=== PATIENT | male | born 1960 | race Two or more races ===

== ENCOUNTER 2018-12-29 18:21 | Emergency (ER) | payer MEDICAID, OTHER ==
[~2018-12-29] VITALS: Ht 182.9 cm; Wt 77.1 kg
[2018-12-29 20:03] VITALS: BP 170/100
[2018-12-30] MEDS ORDERED: MULTIPLE VITAMIN 10 ML, MAGNESIUM SULF SDV 50% 8 MEQ, THIAMINE INJ 100 MG in SODIUM CHL... IV SCH (12:00)
== END 2018-12-29 22:37 | disposition left against medical advice (07) ==
LOC: EDBD 18:21 → ER 18:21
DX: S09.8XXA Other specified injuries of head, initial encounter (principal); G92 Toxic encephalopathy; F10.129 Alcohol abuse with intoxication, unspecified; R42 Dizziness and giddiness; R51 Headache; F17.210 Nicotine dependence, cigarettes, uncomplicated; Y90.9 Presence of alcohol in blood, level not specified; W19.XXXA Unspecified fall, initial encounter; Y93.01 Activity, walking, marching and hiking; Y92.89 Other specified places as the place of occurrence of the external cause; Y99.8 Other external cause status
CPT/HCPCS: 70450

== ENCOUNTER 2019-01-10 22:07 | Emergency (ER) | payer MEDICAID ==
[~2019-01-10] VITALS: Ht 185.4 cm; Wt 90.7 kg
[2019-01-10 23:41] LABS: Basophils # (auto) 0 uL; Basophils % (auto) 0.4 % (0.0-2.0); Eosinophils # (auto) 0.1 uL; Eosinophils % (auto) 1.1 % (0.0-7.0); Hematocrit 40.7 % (41.0-53.0); Hemoglobin 14.1 g/dL (13.5-17.5); Lymphocytes # (auto) 1.4 uL; Lymphocytes % (auto) 23.8 % (10.0-50.0); Mean Corpuscular Hemoglobin 33.9 pg (28.0-32.0); Mean Corpuscular Hgb Conc. 34.7 g/dL (32.0-36.0); Mean Corpuscular Volume 97.9 fL (80.0-100.0); Monocytes # (auto) 0.7 uL; Neutrophils # (auto) 3.6 uL; Neutrophils % (auto) 62.7 % (37.0-80.0); Nucleated Red Blood Cells % 0.1 %; Platelet Count (auto) 89 10^3/uL (140-450); Red Blood Cells 4.16 10^6/uL (4.5-5.90); Red Cell Distribution Width 13.4 % (11.8-14.3); White Blood Cell 5.7 10^3/uL (4.4-10.8)
[2019-01-10 23:57] LABS: Albumin 3.5 g/dL (3.4-5.0); Calcium 8.8 mg/dL (8.5-10.1); Potassium 3.8 mmol/L (3.5-5.1)
[2019-01-11 00:01] LABS: Acetaminophen < 2.0 ug/mL (10-30); BUN/Creatinine Ratio 10.6
[2019-01-11 00:04] LABS: Bilirubin, Total 1.4 mg/dL (0.2-1.0); Total Protein 7.6 g/dL (6.4-8.2)
[2019-01-11 00:16] LABS: Salicylate < 1.7 mg/dL (2.8-20.0)
[2019-01-11 01:13] LABS: Urine Bacteria FEW /hpf (None Seen); Urine Blood Negative /uL (Negative); Urine Specific Gravity 1.005 (1.001-1.035); Urine WBC 1 /hpf (0 - 3)
[2019-01-11 01:25] LABS: Amphetamine Screen, Urine NEGATIVE (NEGATIVE); Barbiturate Scree,Urine NEGATIVE (NEGATIVE); Benzodiazephine Screen, Urine POSITIVE (NEGATIVE); Cannabinoid Screen, Urine NEGATIVE (NEGATIVE); Cocaine Screen, Urine NEGATIVE (NEGATIVE); Opiate Scree,Urine NEGATIVE (NEGATIVE); Phencyclidine Screen, Urine NEGATIVE (NEGATIVE)
[2019-01-11] MEDS ORDERED: MULTIPLE VITAMIN 10 ML, MAGNESIUM SULF SDV 50% 8 MEQ, THIAMINE INJ 100 MG in SODIUM CHL... IV ONE (02:45)
[2019-01-11] MEDS ORDERED: THIAMINE 100mg/ml INJ (200mg/2ml VIAL) ONE (02:52)
[2019-01-11] MEDS ORDERED: MAGNESIUM SULFATE 1GM/100ML 0 ML IV ONE (02:53)
[2019-01-11 03:26] VITALS: BP 129/80
== END 2019-01-11 04:11 | disposition home or self-care (01) ==
LOC: EDUNIT# 22:07 → EDBD 22:07 → ER 22:22
DX: S02.2XXA Fracture of nasal bones, initial encounter for closed fracture (principal); R41.82 Altered mental status, unspecified; G92 Toxic encephalopathy; F10.129 Alcohol abuse with intoxication, unspecified; F17.210 Nicotine dependence, cigarettes, uncomplicated; Z59.0 Homelessness; W19.XXXA Unspecified fall, initial encounter; Y93.89 Activity, other specified; Y92.89 Other specified places as the place of occurrence of the external cause; Y99.8 Other external cause status; Y90.8 Blood alcohol level of 240 mg/100 ml or more
CPT/HCPCS: 36415; 70450; 70486; 71045; 72125; 80053; 80307; 80320; 80329; 81001; 85025; 96365; 99284; J3411; J3475; J7030

== ENCOUNTER 2019-01-24 15:28 | Emergency (ER) | payer MEDICAID ==
[~2019-01-24] VITALS: Ht 170.2 cm; Wt 77.1 kg
[2019-01-24] MEDS ORDERED: SODIUM CHLORIDE 0.9% 1,000 ML IV ONE ×2 (15:41→17:00)
[2019-01-24 16:14] LABS: Basophils # (auto) 0 uL; Eosinophils # (auto) 0.1 uL; Eosinophils % (auto) 1.6 % (0.0-7.0); Lymphocytes % (auto) 22.3 % (10.0-50.0); Nucleated Red Blood Cells % 0.1 %
[2019-01-24 16:16] LABS: Basophils % (auto) 0.3 % (0.0-2.0); Hematocrit 40.8 % (41.0-53.0); Hemoglobin 14.3 g/dL (13.5-17.5); Lymphocytes # (auto) 1.3 uL; Mean Corpuscular Hemoglobin 34.7 pg (28.0-32.0); Mean Corpuscular Hgb Conc. 34.9 g/dL (32.0-36.0); Mean Corpuscular Volume 99.5 fL (80.0-100.0); Monocytes # (auto) 0.9 uL; Monocytes % (auto) 14.4 % (0.0-12.0); Neutrophils # (auto) 3.7 uL; Neutrophils % (auto) 61.4 % (37.0-80.0); Platelet Count (auto) 85 10^3/uL (140-450); Red Blood Cells 4.11 10^6/uL (4.5-5.90); Red Cell Distribution Width 16.2 % (11.8-14.3)
[2019-01-24 16:21] LABS: Albumin 3.4 g/dL (3.4-5.0); Calcium 7.8 mg/dL (8.5-10.1); Potassium 3.7 mmol/L (3.5-5.1)
[2019-01-24 16:26] LABS: Amphetamine Screen, Urine NEGATIVE (NEGATIVE); Barbiturate Scree,Urine NEGATIVE (NEGATIVE); Benzodiazephine Screen, Urine NEGATIVE (NEGATIVE); Cannabinoid Screen, Urine NEGATIVE (NEGATIVE); Cocaine Screen, Urine NEGATIVE (NEGATIVE); Opiate Scree,Urine NEGATIVE (NEGATIVE); Phencyclidine Screen, Urine NEGATIVE (NEGATIVE)
[2019-01-24 16:27] LABS: BUN/Creatinine Ratio 9.8; Bilirubin, Total 1.8 mg/dL (0.2-1.0); Total Protein 7.6 g/dL (6.4-8.2)
[2019-01-24 18:14] VITALS: BP 169/98
== END 2019-01-24 19:40 | disposition left against medical advice (07) ==
LOC: EDBD 15:28 → ER 15:35
DX: F10.129 Alcohol abuse with intoxication, unspecified (principal); E83.51 Hypocalcemia; F17.210 Nicotine dependence, cigarettes, uncomplicated; Z59.0 Homelessness; Y90.8 Blood alcohol level of 240 mg/100 ml or more
CPT/HCPCS: 36415; 80053; 80307; 80320; 85025; 94761; 99283; J7030

== ENCOUNTER 2019-02-16 21:50 | Emergency (ER) | payer MEDICAID ==
[~2019-02-16] VITALS: Ht 177.8 cm; Wt 68.0 kg
[2019-02-16 22:57] LABS: Basophils # (auto) 0.1 uL; Basophils % (auto) 1.1 % (0.0-2.0); Eosinophils # (auto) 0.1 uL; Eosinophils % (auto) 1.4 % (0.0-7.0); Hematocrit 41.7 % (41.0-53.0); Hemoglobin 14.5 g/dL (13.5-17.5); Lymphocytes # (auto) 1.6 uL; Lymphocytes % (auto) 30.6 % (10.0-50.0); Mean Corpuscular Hemoglobin 35.1 pg (28.0-32.0); Mean Corpuscular Hgb Conc. 34.8 g/dL (32.0-36.0); Mean Corpuscular Volume 100.8 fL (80.0-100.0); Monocytes # (auto) 0.7 uL; Monocytes % (auto) 13.9 % (0.0-12.0); Neutrophils # (auto) 2.7 uL; Platelet Count (auto) 72 10^3/uL (140-450); Red Blood Cells 4.14 10^6/uL (4.5-5.90); Red Cell Distribution Width 16.4 % (11.8-14.3); White Blood Cell 5.2 10^3/uL (4.4-10.8)
[2019-02-16 23:19] LABS: Albumin 3.6 g/dL (3.4-5.0); Calcium 7.8 mg/dL (8.5-10.1); Magnesium 2.2 mg/dL (1.6-2.6)
[2019-02-16 23:34] LABS: BUN/Creatinine Ratio 8.3; Bilirubin, Total 1.5 mg/dL (0.2-1.0)
[2019-02-17] MEDS ORDERED: SODIUM CHLORIDE 0.9% 1,000 ML IV ONE (04:30)
[2019-02-17] MEDS ORDERED: MULTIPLE VITAMIN 10 ML, MAGNESIUM SULF SDV 50% 8 MEQ, THIAMINE INJ 100 MG in SODIUM CHL... IV SCH (04:30)
[2019-02-17 05:35] VITALS: BP 126/82
== END 2019-02-17 07:44 | disposition left against medical advice (07) ==
LOC: EDBD → ER 21:51
DX: F10.229 Alcohol dependence with intoxication, unspecified (principal); F17.210 Nicotine dependence, cigarettes, uncomplicated; Z59.0 Homelessness; Z53.29 Procedure and treatment not carried out because of patient's decision for other reasons
CPT/HCPCS: 36415; 80053; 80320; 83735; 85025; 96365; 99283; J7030

== ENCOUNTER 2019-02-24 14:43 | Emergency (ER) | payer MEDICAID ==
[~2019-02-24] VITALS: Ht 177.8 cm; Wt 88.5 kg
[2019-02-24] MEDS ORDERED: SODIUM CHLORIDE 0.9% 1,000 ML IVB ONE (14:53)
[2019-02-24 15:29] LABS: Basophils # (auto) 0 uL; Eosinophils # (auto) 0.1 uL; Hemoglobin 12.9 g/dL (13.5-17.5); Lymphocytes # (auto) 1.3 uL; Monocytes # (auto) 0.4 uL; Neutrophils # (auto) 2.2 uL; Nucleated Red Blood Cells % 0.1 %
[2019-02-24 15:30] LABS: Basophils % (auto) 0.9 % (0.0-2.0); Hematocrit 38.1 % (41.0-53.0); Lymphocytes % (auto) 32.4 % (10.0-50.0); Mean Corpuscular Hemoglobin 34.1 pg (28.0-32.0); Mean Corpuscular Hgb Conc. 33.8 g/dL (32.0-36.0); Mean Corpuscular Volume 100.9 fL (80.0-100.0); Monocytes % (auto) 9.5 % (0.0-12.0); Neutrophils % (auto) 55.2 % (37.0-80.0); Red Blood Cells 3.78 10^6/uL (4.5-5.90); Red Cell Distribution Width 15.7 % (11.8-14.3)
[2019-02-24 15:52] LABS: Albumin 3.2 g/dL (3.4-5.0); Calcium 7.8 mg/dL (8.5-10.1); Potassium 3.6 mmol/L (3.5-5.1)
[2019-02-24 15:54] LABS: Amphetamine Screen, Urine NEGATIVE (NEGATIVE); Barbiturate Scree,Urine NEGATIVE (NEGATIVE); Benzodiazephine Screen, Urine NEGATIVE (NEGATIVE); Cannabinoid Screen, Urine NEGATIVE (NEGATIVE); Cocaine Screen, Urine NEGATIVE (NEGATIVE); Opiate Scree,Urine NEGATIVE (NEGATIVE); Phencyclidine Screen, Urine NEGATIVE (NEGATIVE)
[2019-02-24 16:22] LABS: BUN/Creatinine Ratio 10.2; Bilirubin, Total 1.3 mg/dL (0.2-1.0)
[2019-02-24 16:23] LABS: Total Protein 7.4 g/dL (6.4-8.2)
[2019-02-24 17:10] LABS: Platelet Count (auto) 56 10^3/uL (140-450)
[2019-02-24] MEDS ORDERED: SODIUM CHLORIDE 0.9% 500 ML IV ONE (19:30)
[2019-02-25 00:05] VITALS: BP 143/90
== END 2019-02-25 00:09 | disposition home or self-care (01) ==
LOC: EDBD 14:43 → ER 14:45
DX: F10.229 Alcohol dependence with intoxication, unspecified (principal); I10 Essential (primary) hypertension; F17.210 Nicotine dependence, cigarettes, uncomplicated; F12.90 Cannabis use, unspecified, uncomplicated; Z59.0 Homelessness
CPT/HCPCS: 36415; 80053; 80307; 80320; 85025; 94761; 99283; J7030; J7040; 96360; 96361

== ENCOUNTER → 2019-03-02 | Emergency (ER) | payer MEDICAID ==
[~2019-03-02] VITALS: Ht 172.7 cm; Wt 77.1 kg
[~2019-03-02] MED LIST: SODIUM CHLORIDE 0.9% 1,000 ML IVB ONE; SODIUM CHLORIDE 0.9% 500 ML IV ONE
[2019-03-02 20:14] LABS: Basophils # (auto) 0 uL; Eosinophils # (auto) 0.1 uL; Lymphocytes # (auto) 1.3 uL; Mean Corpuscular Volume 101.7 fL (80.0-100.0); Monocytes # (auto) 0.4 uL; White Blood Cell 3.6 10^3/uL (4.4-10.8)
[2019-03-02 20:16] LABS: Basophils % (auto) 0.3 % (0.0-2.0); Eosinophils % (auto) 1.7 % (0.0-7.0); Hematocrit 35.6 % (41.0-53.0); Hemoglobin 12.1 g/dL (13.5-17.5); Lymphocytes % (auto) 36.2 % (10.0-50.0); Mean Corpuscular Hemoglobin 34.6 pg (28.0-32.0); Monocytes % (auto) 10.8 % (0.0-12.0); Neutrophils # (auto) 1.9 uL; Nucleated Red Blood Cells % 0.1 %; Platelet Count (auto) 53 10^3/uL (140-450); Red Cell Distribution Width 15.9 % (11.8-14.3)
[2019-03-02 20:23] LABS: Calcium 7.5 mg/dL (8.5-10.1); Potassium 3.2 mmol/L (3.5-5.1)
[2019-03-02 20:28] LABS: BUN/Creatinine Ratio 13.6; Bilirubin, Total 1.6 mg/dL (0.2-1.0); Total Protein 6.8 g/dL (6.4-8.2)
[2019-03-03 01:54] LABS: Urine Bacteria NONE SEEN /hpf (None Seen); Urine Blood Negative /uL (Negative); Urine Specific Gravity 1.004 (1.001-1.035); Urine WBC None Seen /hpf (0 - 3)
[2019-03-03 04:30] VITALS: BP 121/69
== END | disposition home or self-care (01) ==
LOC: EDBD 19:04 → ER 19:04 → EDUNIT# 19:04
DX: F10.229 Alcohol dependence with intoxication, unspecified (principal); I10 Essential (primary) hypertension; F17.210 Nicotine dependence, cigarettes, uncomplicated; F12.90 Cannabis use, unspecified, uncomplicated; Z59.0 Homelessness
CPT/HCPCS: 36415; 70450; 80053; 80320; 81001; 85025; 94761; 99284; J3411; J3475; J7030; J7040

== ENCOUNTER 2019-03-07 22:11 | Emergency (ER) | payer MEDICAID ==
[~2019-03-07] VITALS: Ht 180.3 cm; Wt 90.7 kg
[2019-03-08] MEDS ORDERED: SODIUM CHLORIDE 0.9% 500 ML IV ONE (02:54)
[2019-03-08 02:58] LABS: Basophils # (auto) 0 uL; Eosinophils # (auto) 0.1 uL; Hemoglobin 12.3 g/dL (13.5-17.5); Monocytes # (auto) 0.4 uL; Neutrophils # (auto) 1.4 uL; Nucleated Red Blood Cells % 0.2 %; Platelet Count (auto) 85 10^3/uL (140-450)
[2019-03-08 03:00] LABS: Basophils % (auto) 0.4 % (0.0-2.0); Eosinophils % (auto) 1.9 % (0.0-7.0); Hematocrit 36.4 % (41.0-53.0); Lymphocytes # (auto) 1.5 uL; Lymphocytes % (auto) 44.7 % (10.0-50.0); Mean Corpuscular Hemoglobin 34.5 pg (28.0-32.0); Mean Corpuscular Hgb Conc. 33.8 g/dL (32.0-36.0); Red Blood Cells 3.57 10^6/uL (4.5-5.90); Red Cell Distribution Width 15.8 % (11.8-14.3); White Blood Cell 3.4 10^3/uL (4.4-10.8)
[2019-03-08] MEDS ORDERED: THIAMINE 100mg/ml INJ (200mg/2ml VIAL) IV ONE (03:00)
[2019-03-08] MEDS ORDERED: ACETAMINOPHEN 500 MG TAB PO ONE (03:00)
[2019-03-08 03:38] LABS: Albumin 3.1 g/dL (3.4-5.0); Calcium 7.4 mg/dL (8.5-10.1); Potassium 3.8 mmol/L (3.5-5.1)
[2019-03-08 03:42] LABS: BUN/Creatinine Ratio 8.9; Total Protein 6.5 g/dL (6.4-8.2)
[2019-03-08] MEDS ORDERED: CALCIUM CHL 100MG/ML 500 MG in D5W 5% 100 ML IV ONE (05:45)
[2019-03-08 07:44] VITALS: BP 119/75
== END 2019-03-08 11:58 | disposition left against medical advice (07) ==
LOC: ER 22:12
DX: S16.1XXA Strain of muscle, fascia and tendon at neck level, initial encounter (principal); S86.912A Strain of unspecified muscle(s) and tendon(s) at lower leg level, left leg, initial encounter; S86.911A Strain of unspecified muscle(s) and tendon(s) at lower leg level, right leg, initial encounter; F10.129 Alcohol abuse with intoxication, unspecified; I10 Essential (primary) hypertension; F17.210 Nicotine dependence, cigarettes, uncomplicated; F12.10 Cannabis abuse, uncomplicated; Z59.0 Homelessness; W20.8XXA Other cause of strike by thrown, projected or falling object, initial encounter; Y93.89 Activity, other specified; Y92.512 Supermarket, store or market as the place of occurrence of the external cause; Y99.8 Other external cause status
CPT/HCPCS: 36415; 70450; 71045; 72125; 73590; 80053; 80320; 83880; 84484; 85025; 94761; 96365; 96375; 99284; J3411; J7040; J7060

== ENCOUNTER 2019-03-08 21:24 | Emergency (ER) | payer MEDICAID ==
[~2019-03-08] VITALS: Ht 175.3 cm; Wt 77.1 kg
[2019-03-09] MEDS ORDERED: SODIUM CHLORIDE 0.9% 1,000 ML IV ONE (00:40)
[2019-03-09] MEDS ORDERED: THIAMINE 100mg/ml INJ (200mg/2ml VIAL) IV ONE (00:45)
[2019-03-09 06:00] VITALS: BP 122/77
[2019-03-09 06:44] LABS: Basophils # (auto) 0 uL; Eosinophils # (auto) 0.1 uL; Hemoglobin 12.1 g/dL (13.5-17.5); Lymphocytes # (auto) 0.9 uL; Monocytes # (auto) 0.4 uL; Neutrophils # (auto) 0.9 uL; Platelet Count (auto) 70 10^3/uL (140-450); White Blood Cell 2.3 10^3/uL (4.4-10.8)
[2019-03-09 06:46] LABS: Basophils % (auto) 1.4 % (0.0-2.0); Hematocrit 35.4 % (41.0-53.0); Lymphocytes % (auto) 38.4 % (10.0-50.0); Mean Corpuscular Hemoglobin 34.8 pg (28.0-32.0); Mean Corpuscular Hgb Conc. 34.2 g/dL (32.0-36.0); Mean Corpuscular Volume 101.8 fL (80.0-100.0); Neutrophils % (auto) 39.1 % (37.0-80.0); Nucleated Red Blood Cells % 0.3 %; Red Blood Cells 3.48 10^6/uL (4.5-5.90); Red Cell Distribution Width 16.3 % (11.8-14.3)
[2019-03-09 06:52] LABS: Monocytes % (auto) 18.1 % (0.0-12.0)
[2019-03-09 06:55] LABS: Albumin 2.7 g/dL (3.4-5.0); Anion Gap 8 (5-15); Blood Urea Nitrogen 5 mg/dL (7-18); Calcium 7.4 mg/dL (8.5-10.1); Carbon Dioxide 24 mmol/L (21-32); Chloride 114 mmol/L (98-107); GFR African American 221 mL/min; GFR Non-African American 183 mL/min; Glucose 87 mg/dL (74-106); Potassium 3.6 mmol/L (3.5-5.1); Sodium 146 mmol/L (136-145)
[2019-03-09 06:58] LABS: Alanine Aminotransferase 75 U/L (16-61); Alkaline Phosphatase 129 U/L (45-117); Aspartate Aminotransferase 103 U/L (15-37); Bilirubin, Total 0.8 mg/dL (0.2-1.0); Total Protein 6.5 g/dL (6.4-8.2)
== END 2019-03-09 07:31 | disposition left against medical advice (07) ==
LOC: ER 21:24 → EDBD 21:24 → EDUNIT# 21:24 → ER 03-09 07:31
DX: F10.129 Alcohol abuse with intoxication, unspecified (principal); I10 Essential (primary) hypertension; F17.210 Nicotine dependence, cigarettes, uncomplicated; F12.10 Cannabis abuse, uncomplicated; R41.82 Altered mental status, unspecified; Z59.0 Homelessness; Y90.9 Presence of alcohol in blood, level not specified
CPT/HCPCS: 36415; 70450; 80053; 80320; 85025; 94761; 96361; 96374; 99284; J3411; J7030

== ENCOUNTER 2019-03-10 01:08 | Emergency (ER) | payer MEDICAID ==
[~2019-03-10] VITALS: Ht 182.9 cm; Wt 99.8 kg
[2019-03-10] MEDS ORDERED: SODIUM CHLORIDE 0.9% 1,000 ML IVB ONE (01:52)
[2019-03-10] MEDS ORDERED: MVI in SODIUM CHLORIDE 0.9% 1,010 ML IV ONE (01:52)
[2019-03-10] MEDS ORDERED: THIAMINE 100mg/ml INJ (200mg/2ml VIAL) IV ONE (02:00)
[2019-03-10] MEDS ORDERED: ONDANSETRON HCL 4 MG/2 ML VIAL IV ONE (02:00)
[2019-03-10 02:36] LABS: Basophils # (auto) 0 uL; Basophils % (auto) 1.4 % (0.0-2.0); Eosinophils # (auto) 0.1 uL; Lymphocytes # (auto) 1.4 uL; Monocytes # (auto) 0.4 uL; Nucleated Red Blood Cells % 0.1 %
[2019-03-10 02:38] LABS: Eosinophils % (auto) 2.6 % (0.0-7.0); Hematocrit 34.6 % (41.0-53.0); Lymphocytes % (auto) 47.9 % (10.0-50.0); Mean Corpuscular Hgb Conc. 34.7 g/dL (32.0-36.0); Mean Corpuscular Volume 100.8 fL (80.0-100.0); Monocytes % (auto) 14.1 % (0.0-12.0); Platelet Count (auto) 77 10^3/uL (140-450); Red Blood Cells 3.43 10^6/uL (4.5-5.90); Red Cell Distribution Width 16.4 % (11.8-14.3)
[2019-03-10 02:55] LABS: Albumin 2.9 g/dL (3.4-5.0); Calcium 7.4 mg/dL (8.5-10.1); Potassium 3.5 mmol/L (3.5-5.1)
[2019-03-10 02:56] LABS: INR 1.21 (0.9-1.15); Partial Thromboplastin Time 30.8 sec (23.64-32.05)
[2019-03-10] MEDS: MAGNESIUM SULFATE 1GM/100ML 100 ML IV SCH ×2 (02:56→03:00)
[2019-03-10 03:21] LABS: BUN/Creatinine Ratio 11.1
[2019-03-10 03:22] LABS: Bilirubin, Total 0.9 mg/dL (0.2-1.0); Total Protein 6.6 g/dL (6.4-8.2)
[2019-03-10] MEDS ORDERED: CIPROFLOXACIN HCL 500 MG TAB PO ONE (04:30)
[2019-03-10] MEDS ORDERED: SODIUM CHLORIDE 0.9% 1,000 ML IV ONE (05:15)
[2019-03-10 08:02] VITALS: BP 115/71
== END 2019-03-10 08:12 | disposition home or self-care (01) ==
LOC: EDBD 01:08 → EDUNIT# 01:08 → ER 01:11
DX: F10.229 Alcohol dependence with intoxication, unspecified (principal); E86.0 Dehydration; F17.210 Nicotine dependence, cigarettes, uncomplicated; F12.90 Cannabis use, unspecified, uncomplicated; I10 Essential (primary) hypertension
CPT/HCPCS: 36415; 80053; 80320; 82150; 83690; 85025; 85610; 85730; 96361; 96374; 96375; 99283; J2405; J3411; J3475; J7030

== ENCOUNTER 2019-03-11 20:17 | Emergency (ER) | payer MEDICAID ==
[~2019-03-11] VITALS: Ht 177.8 cm; Wt 79.4 kg
[2019-03-11 20:58] LABS: Basophils # (auto) 0 uL; Basophils % (auto) 0.6 % (0.0-2.0); Eosinophils # (auto) 0.1 uL; Eosinophils % (auto) 1.8 % (0.0-7.0); Hematocrit 35.4 % (41.0-53.0); Lymphocytes # (auto) 1.3 uL; Lymphocytes % (auto) 29.4 % (10.0-50.0); Mean Corpuscular Hemoglobin 34.6 pg (28.0-32.0); Mean Corpuscular Hgb Conc. 33.8 g/dL (32.0-36.0); Mean Corpuscular Volume 102.4 fL (80.0-100.0); Monocytes # (auto) 0.5 uL; Monocytes % (auto) 10.7 % (0.0-12.0); Neutrophils # (auto) 2.5 uL; Neutrophils % (auto) 57.5 % (37.0-80.0); Nucleated Red Blood Cells % 0.1 %; Platelet Count (auto) 98 10^3/uL (140-450); Red Blood Cells 3.46 10^6/uL (4.5-5.90); White Blood Cell 4.4 10^3/uL (4.4-10.8)
[2019-03-11] MEDS ORDERED: FOLIC ACID 1 MG, MULTIPLE VITAMIN 10 ML, MAGNESIUM SULF SDV 50% 8 MEQ, THIAMINE INJ 100... INJ ONE ×5 (21:15)
[2019-03-11] MEDS ORDERED: SODIUM CHLORIDE 0.9% 1,000 ML IV ONE (21:15)
[2019-03-11 21:29] LABS: Albumin 3.3 g/dL (3.4-5.0); Potassium 3.7 mmol/L (3.5-5.1)
[2019-03-11 21:39] LABS: BUN/Creatinine Ratio 5.1; Bilirubin, Total 1.9 mg/dL (0.2-1.0); Total Protein 7.1 g/dL (6.4-8.2)
[2019-03-12 02:27] LABS: Urine Bacteria NONE SEEN /hpf (None Seen); Urine Blood Negative /uL (Negative); Urine Mucus FEW (None Seen); Urine Specific Gravity 1.007 (1.001-1.035); Urine WBC 1 /hpf (0 - 3)
[2019-03-12] MEDS ORDERED: SODIUM CHLORIDE 0.9% 1,000 ML IV ONE (03:00)
[2019-03-12 03:03] LABS: Amphetamine Screen, Urine NEGATIVE (NEGATIVE); Barbiturate Scree,Urine NEGATIVE (NEGATIVE); Benzodiazephine Screen, Urine POSITIVE (NEGATIVE); Cannabinoid Screen, Urine POSITIVE (NEGATIVE); Cocaine Screen, Urine NEGATIVE (NEGATIVE); Opiate Scree,Urine NEGATIVE (NEGATIVE); Phencyclidine Screen, Urine NEGATIVE (NEGATIVE)
[2019-03-12 07:58] VITALS: BP 125/75
== END 2019-03-12 09:47 | disposition home or self-care (01) ==
LOC: ER 20:17 → EDBD 20:17 → ER 03-12 09:47
DX: F10.920 Alcohol use, unspecified with intoxication, uncomplicated (principal); F17.210 Nicotine dependence, cigarettes, uncomplicated; I10 Essential (primary) hypertension; F12.10 Cannabis abuse, uncomplicated; Z59.0 Homelessness
CPT/HCPCS: 36415; 70450; 70486; 72125; 73070; 80053; 80307; 80320; 81001; 85025; 96361; 96365; 96366; 99284; J3411; J3475; J7030

== ENCOUNTER 2019-03-15 14:48 | Emergency (ER) | payer MEDICAID ==
[~2019-03-15] VITALS: Ht 185.4 cm; Wt 95.3 kg
[2019-03-15 14:58] VITALS: BP 110/60
[2019-03-15 16:04] LABS: Basophils # (auto) 0 uL; Eosinophils # (auto) 0 uL; Hemoglobin 10.9 g/dL (13.5-17.5); Monocytes # (auto) 0.4 uL
[2019-03-15 16:06] LABS: Basophils % (auto) 0.4 % (0.0-2.0); Eosinophils % (auto) 0.9 % (0.0-7.0); Lymphocytes # (auto) 1.1 uL; Lymphocytes % (auto) 23.5 % (10.0-50.0); Mean Corpuscular Hemoglobin 34.8 pg (28.0-32.0); Mean Corpuscular Hgb Conc. 34.2 g/dL (32.0-36.0); Mean Corpuscular Volume 101.7 fL (80.0-100.0); Monocytes % (auto) 8.7 % (0.0-12.0); Neutrophils % (auto) 66.5 % (37.0-80.0); Platelet Count (auto) 95 10^3/uL (140-450); Red Blood Cells 3.15 10^6/uL (4.5-5.90); Red Cell Distribution Width 15.7 % (11.8-14.3); White Blood Cell 4.6 10^3/uL (4.4-10.8)
[2019-03-15 16:18] LABS: Alanine Aminotransferase 63 U/L (16-61); Albumin 3.2 g/dL (3.4-5.0); Anion Gap 13 (5-15); Aspartate Aminotransferase 83 U/L (15-37); BUN/Creatinine Ratio 6.3; Blood Urea Nitrogen 4 mg/dL (7-18); Calcium 7.5 mg/dL (8.5-10.1); Carbon Dioxide 20 mmol/L (21-32); Chloride 106 mmol/L (98-107); GFR African American 166 mL/min; GFR Non-African American 137 mL/min; Glucose 139 mg/dL (74-106); Potassium 3.6 mmol/L (3.5-5.1); Sodium 139 mmol/L (136-145)
[2019-03-15 16:21] LABS: Alkaline Phosphatase 133 U/L (45-117); Total Protein 7.1 g/dL (6.4-8.2)
== END 2019-03-15 17:07 | disposition left against medical advice (07) ==
LOC: ER 14:48 → EDBD 14:48 → ER 17:07
DX: F10.10 Alcohol abuse, uncomplicated (principal); F41.9 Anxiety disorder, unspecified; Z53.21 Procedure and treatment not carried out due to patient leaving prior to being seen by health care provider
CPT/HCPCS: 36415; 80053; 80320; 85025

== ENCOUNTER 2019-03-16 16:52 | Emergency (ER) | payer MEDICAID ==
[~2019-03-16] VITALS: Ht 172.7 cm; Wt 81.6 kg
[2019-03-16] MEDS ORDERED: SODIUM CHLORIDE 0.9% 1,000 ML IVB ONE (17:26)
[2019-03-16] MEDS ORDERED: ACETAMINOPHEN 325 MG TAB PO ONE (18:15)
[2019-03-16 18:34] LABS: Basophils # (auto) 0 uL; Eosinophils # (auto) 0.1 uL; Hematocrit 33.9 % (41.0-53.0); Lymphocytes # (auto) 1.4 uL; Neutrophils # (auto) 3.1 uL
[2019-03-16 18:35] LABS: Basophils % (auto) 0.4 % (0.0-2.0); Eosinophils % (auto) 1.9 % (0.0-7.0); Hemoglobin 11.6 g/dL (13.5-17.5); Lymphocytes % (auto) 27.5 % (10.0-50.0); Mean Corpuscular Hemoglobin 35.1 pg (28.0-32.0); Mean Corpuscular Hgb Conc. 34.1 g/dL (32.0-36.0); Mean Corpuscular Volume 102.9 fL (80.0-100.0); Monocytes # (auto) 0.5 uL; Monocytes % (auto) 9.1 % (0.0-12.0); Neutrophils % (auto) 61.1 % (37.0-80.0); Platelet Count (auto) 95 10^3/uL (140-450); Red Cell Distribution Width 16.5 % (11.8-14.3)
[2019-03-16 18:50] LABS: Amphetamine Screen, Urine NEGATIVE (NEGATIVE); Barbiturate Scree,Urine NEGATIVE (NEGATIVE); Benzodiazephine Screen, Urine POSITIVE (NEGATIVE); Cannabinoid Screen, Urine POSITIVE (NEGATIVE); Cocaine Screen, Urine NEGATIVE (NEGATIVE); Phencyclidine Screen, Urine NEGATIVE (NEGATIVE)
[2019-03-16 18:50] LABS: Albumin 3.2 g/dL (3.4-5.0); Anion Gap 11 (5-15); Blood Urea Nitrogen 5 mg/dL (7-18); Calcium 7.2 mg/dL (8.5-10.1); Carbon Dioxide 21 mmol/L (21-32); Chloride 118 mmol/L (98-107); Glucose 110 mg/dL (74-106); Potassium 3.5 mmol/L (3.5-5.1); Sodium 150 mmol/L (136-145)
[2019-03-16 18:52] LABS: Alanine Aminotransferase 57 U/L (16-61); Aspartate Aminotransferase 70 U/L (15-37); BUN/Creatinine Ratio 8.3; GFR African American 179 mL/min; GFR Non-African American 148 mL/min
[2019-03-16 18:59] LABS: Opiate Scree,Urine NEGATIVE (NEGATIVE)
[2019-03-16 18:59] LABS: Alkaline Phosphatase 129 U/L (45-117); Total Protein 7.4 g/dL (6.4-8.2)
[2019-03-17 05:42] VITALS: BP 127/63
== END 2019-03-17 05:48 | disposition home or self-care (01) ==
LOC: EDBD 16:52 → ER 16:59
DX: F10.229 Alcohol dependence with intoxication, unspecified (principal); I10 Essential (primary) hypertension; F17.210 Nicotine dependence, cigarettes, uncomplicated; F12.90 Cannabis use, unspecified, uncomplicated; Z59.0 Homelessness
CPT/HCPCS: 36415; 80053; 80307; 80320; 85025; 94761; 99283; J7030

== ENCOUNTER 2019-03-22 16:35 | Emergency (ER) | payer MEDICAID ==
[~2019-03-22] VITALS: Ht 182.9 cm; Wt 81.6 kg
[2019-03-22] MEDS ORDERED: SODIUM CHLORIDE 0.9% 1,000 ML IV ONE (16:46)
[2019-03-22 18:28] LABS: Basophils # (auto) 0 uL; Hemoglobin 11.4 g/dL (13.5-17.5); Lymphocytes # (auto) 1.1 uL; Neutrophils # (auto) 2.3 uL; Nucleated Red Blood Cells % 0.1 %; Platelet Count (auto) 82 10^3/uL (140-450); White Blood Cell 3.9 10^3/uL (4.4-10.8)
[2019-03-22 18:31] LABS: Basophils % (auto) 0.8 % (0.0-2.0); Eosinophils # (auto) 0.1 uL; Eosinophils % (auto) 1.4 % (0.0-7.0); Hematocrit 33.1 % (41.0-53.0); Lymphocytes % (auto) 28.6 % (10.0-50.0); Mean Corpuscular Hemoglobin 35.1 pg (28.0-32.0); Mean Corpuscular Hgb Conc. 34.5 g/dL (32.0-36.0); Monocytes # (auto) 0.4 uL; Monocytes % (auto) 11.4 % (0.0-12.0); Neutrophils % (auto) 57.8 % (37.0-80.0); Red Blood Cells 3.25 10^6/uL (4.5-5.90)
[2019-03-22 18:39] LABS: Albumin 3.1 g/dL (3.4-5.0); Calcium 7.1 mg/dL (8.5-10.1); Potassium 3.4 mmol/L (3.5-5.1)
[2019-03-22 18:45] LABS: Bilirubin, Total 1.6 mg/dL (0.2-1.0); Total Protein 6.8 g/dL (6.4-8.2)
[2019-03-22 18:49] LABS: BUN/Creatinine Ratio 7.8
[2019-03-22 18:58] LABS: Alcohol, Urine 366.2 mg/dL (0-5)
[2019-03-22 18:59] LABS: Opiate Scree,Urine NEGATIVE (NEGATIVE)
[2019-03-22 19:00] LABS: Amphetamine Screen, Urine NEGATIVE (NEGATIVE); Barbiturate Scree,Urine NEGATIVE (NEGATIVE); Benzodiazephine Screen, Urine NEGATIVE (NEGATIVE); Cannabinoid Screen, Urine NEGATIVE (NEGATIVE); Cocaine Screen, Urine NEGATIVE (NEGATIVE); Phencyclidine Screen, Urine NEGATIVE (NEGATIVE)
[2019-03-22 20:21] VITALS: BP 116/85
[2019-03-22] MEDS ORDERED: ACETAMINOPHEN 325 MG TAB PO ONE (21:30)
== END 2019-03-23 02:11 | disposition home or self-care (01) ==
LOC: EDBD 16:35 → ER 16:52
DX: F10.229 Alcohol dependence with intoxication, unspecified (principal); I10 Essential (primary) hypertension; F17.210 Nicotine dependence, cigarettes, uncomplicated; F12.90 Cannabis use, unspecified, uncomplicated; Z59.0 Homelessness
CPT/HCPCS: 36415; 80053; 80307; 80320; 85025; 93005; 94761; 96360; 99284; J7030

== ENCOUNTER 2019-03-30 12:31 | Emergency (ER) | payer MEDICAID ==
[~2019-03-30] VITALS: Ht 180.3 cm; Wt 79.4 kg
[2019-03-30 12:38] VITALS: BP 136/89
[2019-03-30] MEDS ORDERED: SODIUM CHLORIDE 0.9% 1,000 ML IVB ONE (12:41)
[2019-03-30] MEDS ORDERED: THIAMINE 100mg/ml INJ (200mg/2ml VIAL) IV ONE (12:45)
[2019-03-30 13:28] LABS: Basophils # (auto) 0 uL; Eosinophils # (auto) 0.1 uL; Hemoglobin 13.3 g/dL (13.5-17.5); Lymphocytes # (auto) 1.4 uL; Mean Corpuscular Hemoglobin 34.3 pg (28.0-32.0); Monocytes # (auto) 0.5 uL; Neutrophils # (auto) 2.4 uL; White Blood Cell 4.4 10^3/uL (4.4-10.8)
[2019-03-30 13:29] LABS: Basophils % (auto) 0.8 % (0.0-2.0); Eosinophils % (auto) 1.2 % (0.0-7.0); Lymphocytes % (auto) 32.4 % (10.0-50.0); Mean Corpuscular Hgb Conc. 33.4 g/dL (32.0-36.0); Mean Corpuscular Volume 102.7 fL (80.0-100.0); Monocytes % (auto) 11.7 % (0.0-12.0); Neutrophils % (auto) 53.9 % (37.0-80.0); Nucleated Red Blood Cells % 0.2 %; Platelet Count (auto) 102 10^3/uL (140-450); Red Blood Cells 3.89 10^6/uL (4.5-5.90); Red Cell Distribution Width 15.9 % (11.8-14.3)
[2019-03-30 13:43] LABS: Salicylate < 1.7 mg/dL (2.8-20.0)
[2019-03-30 13:44] LABS: Albumin 3.5 g/dL (3.4-5.0); BUN/Creatinine Ratio 9.1; Calcium 7.4 mg/dL (8.5-10.1); Potassium 3.8 mmol/L (3.5-5.1)
[2019-03-30 13:48] LABS: Bilirubin, Total 1.3 mg/dL (0.2-1.0); Total Protein 7.5 g/dL (6.4-8.2)
[2019-03-30 13:53] LABS: Acetaminophen < 2.0 ug/mL (10-30)
[2019-03-30] MEDS ORDERED: SODIUM CHLORIDE 0.9% 1,000 ML IV ONE ×2 (16:48)
== END 2019-03-30 19:25 | disposition home or self-care (01) ==
LOC: EDBD 12:31 → ER 12:41
DX: F10.229 Alcohol dependence with intoxication, unspecified (principal); I10 Essential (primary) hypertension; F17.210 Nicotine dependence, cigarettes, uncomplicated; F12.90 Cannabis use, unspecified, uncomplicated; Z59.0 Homelessness
CPT/HCPCS: 36415; 80053; 80320; 80329; 85025; 96361; 96374; 99283; J3411; J7030

== ENCOUNTER 2019-04-08 13:00 | Emergency (ER) | payer MEDICAID ==
[~2019-04-08] VITALS: Ht 172.7 cm; Wt 72.6 kg
[2019-04-08] MEDS ORDERED: SODIUM CHLORIDE 0.9% 1,000 ML IVB ONE (13:34)
[2019-04-08] MEDS ORDERED: THIAMINE 100mg/ml INJ (200mg/2ml VIAL) IV ONE (13:45)
[2019-04-08 13:47] VITALS: BP 116/74
== END 2019-04-08 15:10 | disposition home or self-care (01) ==
LOC: EDUNIT# 13:00 → EDBD 13:00 → ER 13:00
DX: E86.0 Dehydration (principal); F10.129 Alcohol abuse with intoxication, unspecified; F17.210 Nicotine dependence, cigarettes, uncomplicated; F12.10 Cannabis abuse, uncomplicated; I10 Essential (primary) hypertension; Z59.0 Homelessness
CPT/HCPCS: 96374; 99283; J3411; J7030

== ENCOUNTER 2019-04-15 21:55 | Emergency (ER) | payer MEDICAID ==
[~2019-04-15] VITALS: Ht 167.6 cm; Wt 72.6 kg
[2019-04-15] MEDS ORDERED: THIAMINE 100mg/ml INJ (200mg/2ml VIAL) ONE (22:50)
[2019-04-15] MEDS ORDERED: MVI in SODIUM CHLORIDE 0.9% 1,010 ML ONE (22:51)
[2019-04-15] MEDS ORDERED: diphenhdrAMINE HCL 50 MG/1 ML VL ONE (23:25)
[2019-04-15] MEDS ORDERED: LORazepam 2MG/ML-1ML VIAL ONE (23:25)
[2019-04-15] MEDS ORDERED: HALOPERIDOL LACTATE 5 MG/ML INJ VIAL ONE (23:26)
[2019-04-15] MEDS ORDERED: diphenhdrAMINE HCL 50 MG/1 ML VL IV ONE (23:30)
[2019-04-15] MEDS ORDERED: LORazepam 2MG/ML-1ML VIAL IV ONE (23:30)
[2019-04-15] MEDS ORDERED: HALOPERIDOL LACTATE 5 MG/ML INJ VIAL IM ONE (23:30)
[2019-04-16 01:17] LABS: Alanine Aminotransferase 99 U/L (16-61); Albumin 3.4 g/dL (3.4-5.0); Anion Gap 12 (5-15); Aspartate Aminotransferase 129 U/L (15-37); BUN/Creatinine Ratio 5.5; Blood Urea Nitrogen 3 mg/dL (7-18); Calcium 7.7 mg/dL (8.5-10.1); Carbon Dioxide 22 mmol/L (21-32); Chloride 116 mmol/L (98-107); GFR African American 198 mL/min; GFR Non-African American 164 mL/min; Glucose 103 mg/dL (74-106); Magnesium 2.2 mg/dL (1.6-2.6); Potassium 3.9 mmol/L (3.5-5.1); Sodium 150 mmol/L (136-145)
[2019-04-16 01:20] LABS: Alkaline Phosphatase 143 U/L (45-117); Total Protein 7.5 g/dL (6.4-8.2)
[2019-04-16 01:41] LABS: Salicylate < 1.7 mg/dL (2.8-20.0)
[2019-04-16 01:43] LABS: Acetaminophen < 2.0 ug/mL (10-30)
[2019-04-16 03:18] LABS: Basophils # (auto) 0 uL; Eosinophils # (auto) 0.1 uL; Hemoglobin 13.6 g/dL (13.5-17.5); Lymphocytes # (auto) 1.2 uL; Neutrophils # (auto) 1.4 uL
[2019-04-16 03:20] LABS: Basophils % (auto) 0.5 % (0.0-2.0); Hematocrit 40.1 % (41.0-53.0); Lymphocytes % (auto) 38.3 % (10.0-50.0); Mean Corpuscular Hemoglobin 34.7 pg (28.0-32.0); Mean Corpuscular Hgb Conc. 33.9 g/dL (32.0-36.0); Mean Corpuscular Volume 102.4 fL (80.0-100.0); Monocytes # (auto) 0.4 uL; Monocytes % (auto) 12.6 % (0.0-12.0); Neutrophils % (auto) 46.6 % (37.0-80.0); Nucleated Red Blood Cells % 0.1 %; Platelet Count (auto) 60 10^3/uL (140-450); Red Blood Cells 3.91 10^6/uL (4.5-5.90); Red Cell Distribution Width 15.3 % (11.8-14.3)
[2019-04-16] MEDS ORDERED: SOD CHL 0.45% 1,000 ML IV ONE (04:30)
[2019-04-16 05:58] LABS: Urine Bacteria NONE SEEN /hpf (None Seen); Urine Blood Negative /uL (Negative); Urine Mucus FEW (None Seen); Urine WBC <1 /hpf (0 - 3)
[2019-04-16 06:41] LABS: Amphetamine Screen, Urine NEGATIVE (NEGATIVE); Barbiturate Scree,Urine NEGATIVE (NEGATIVE); Benzodiazephine Screen, Urine NEGATIVE (NEGATIVE); Cannabinoid Screen, Urine NEGATIVE (NEGATIVE); Cocaine Screen, Urine NEGATIVE (NEGATIVE); Opiate Scree,Urine NEGATIVE (NEGATIVE); Phencyclidine Screen, Urine NEGATIVE (NEGATIVE)
[2019-04-16 07:16] LABS: Albumin 3.2 g/dL (3.4-5.0); BUN/Creatinine Ratio 6.4; Calcium 7.7 mg/dL (8.5-10.1); Potassium 3.6 mmol/L (3.5-5.1)
[2019-04-16 07:23] LABS: Bilirubin, Total 0.9 mg/dL (0.2-1.0); Total Protein 7.2 g/dL (6.4-8.2)
[2019-04-16 14:25] VITALS: BP 140/79
== END 2019-04-16 14:28 | disposition home or self-care (01) ==
LOC: EDBD 21:55 → ER 21:55
DX: F10.129 Alcohol abuse with intoxication, unspecified (principal); R41.82 Altered mental status, unspecified; G92 Toxic encephalopathy; R45.1 Restlessness and agitation; I10 Essential (primary) hypertension; F17.210 Nicotine dependence, cigarettes, uncomplicated; F12.10 Cannabis abuse, uncomplicated; Z59.0 Homelessness
CPT/HCPCS: 36415; 80053; 80307; 80320; 80329; 81001; 83735; 85025; 96361; 96372; 96374; 96375; 99283; J1200; J1630; J2060; J3411; J3475; J7030

== ENCOUNTER 2019-04-18 14:32 | Emergency (ER) | payer MEDICAID ==
[~2019-04-18] VITALS: Ht 177.8 cm; Wt 81.6 kg
[2019-04-18] MEDS ORDERED: SODIUM CHLORIDE 0.9% 1,000 ML IVB ONE (14:40)
[2019-04-18 14:59] LABS: Eosinophils # (auto) 0.1 uL; Hemoglobin 13.1 g/dL (13.5-17.5); Lymphocytes # (auto) 1.3 uL; Monocytes # (auto) 0.4 uL; Neutrophils # (auto) 2.1 uL; Nucleated Red Blood Cells % 0.1 %; White Blood Cell 3.9 10^3/uL (4.4-10.8)
[2019-04-18 15:01] LABS: Basophils # (auto) 0 uL; Basophils % (auto) 1.2 % (0.0-2.0); Hematocrit 38.6 % (41.0-53.0); Mean Corpuscular Hgb Conc. 33.8 g/dL (32.0-36.0); Mean Corpuscular Volume 100.5 fL (80.0-100.0); Monocytes % (auto) 10.1 % (0.0-12.0); Neutrophils % (auto) 52.7 % (37.0-80.0); Platelet Count (auto) 81 10^3/uL (140-450); Red Blood Cells 3.84 10^6/uL (4.5-5.90); Red Cell Distribution Width 15.5 % (11.8-14.3)
[2019-04-18 15:07] VITALS: BP 118/68
[2019-04-18 15:21] LABS: Albumin 3.3 g/dL (3.4-5.0); Potassium 3.5 mmol/L (3.5-5.1)
[2019-04-18 15:27] LABS: BUN/Creatinine Ratio 10.3; Bilirubin, Total 1.1 mg/dL (0.2-1.0); Total Protein 7.5 g/dL (6.4-8.2)
== END 2019-04-18 20:31 | disposition left against medical advice (07) ==
LOC: EDBD 14:32 → EDUNIT# 14:32 → ER 14:39
DX: F10.129 Alcohol abuse with intoxication, unspecified (principal); Y90.8 Blood alcohol level of 240 mg/100 ml or more; F17.210 Nicotine dependence, cigarettes, uncomplicated; F12.10 Cannabis abuse, uncomplicated; Z59.0 Homelessness
CPT/HCPCS: 36415; 80053; 80320; 85025; 94761; 99283; J7030

== ENCOUNTER 2019-04-23 14:05 | Emergency (ER) | payer MEDICAID ==
[~2019-04-23] VITALS: Ht 170.2 cm; Wt 68.0 kg
[2019-04-23 14:09] VITALS: BP 120/88
[2019-04-23] MEDS ORDERED: SODIUM CHLORIDE 0.9% 1,000 ML IV ONE (14:11)
== END 2019-04-23 15:44 | disposition left against medical advice (07) ==
LOC: EDBD 14:05 → ER 14:05
DX: F10.129 Alcohol abuse with intoxication, unspecified (principal); I10 Essential (primary) hypertension; F17.210 Nicotine dependence, cigarettes, uncomplicated; Z59.0 Homelessness; Y90.9 Presence of alcohol in blood, level not specified
CPT/HCPCS: 94761

== ENCOUNTER 2019-05-10 02:04 | Emergency (ER) | payer MEDICAID ==
[~2019-05-10] VITALS: Ht 182.9 cm; Wt 86.2 kg
[2019-05-10 02:34] VITALS: BP 142/84
[2019-05-10 03:22] LABS: Basophils # (auto) 0 uL; Basophils % (auto) 0.8 % (0.0-2.0); Eosinophils # (auto) 0.1 uL; Eosinophils % (auto) 1.3 % (0.0-7.0); Hematocrit 32.4 % (41.0-53.0); Hemoglobin 11.3 g/dL (13.5-17.5); Lymphocytes # (auto) 1.2 uL; Lymphocytes % (auto) 26.5 % (10.0-50.0); Mean Corpuscular Hemoglobin 33.8 pg (28.0-32.0); Mean Corpuscular Hgb Conc. 34.8 g/dL (32.0-36.0); Monocytes # (auto) 0.4 uL; Monocytes % (auto) 10.1 % (0.0-12.0); Neutrophils # (auto) 2.7 uL; Neutrophils % (auto) 61.3 % (37.0-80.0); Nucleated Red Blood Cells % 0.1 %; Platelet Count (auto) 162 10^3/uL (140-450); Red Blood Cells 3.34 10^6/uL (4.5-5.90); Red Cell Distribution Width 16.4 % (11.8-14.3); White Blood Cell 4.4 10^3/uL (4.4-10.8)
[2019-05-10 03:40] LABS: Albumin 3.3 g/dL (3.4-5.0); Calcium 7.6 mg/dL (8.5-10.1); Potassium 3.4 mmol/L (3.5-5.1)
[2019-05-10 03:44] LABS: BUN/Creatinine Ratio 5.6
[2019-05-10 03:46] LABS: Bilirubin, Total 0.8 mg/dL (0.2-1.0); Total Protein 7.5 g/dL (6.4-8.2)
== END 2019-05-10 02:38 | disposition left against medical advice (07) ==
LOC: EDBD 02:04 → ER 02:11
DX: F10.10 Alcohol abuse, uncomplicated (principal); Z53.21 Procedure and treatment not carried out due to patient leaving prior to being seen by health care provider
CPT/HCPCS: 36415; 80053; 80320; 85025

== ENCOUNTER 2019-05-13 01:50 | Emergency (ER) | payer MEDICAID ==
[~2019-05-13] VITALS: Ht 180.3 cm; Wt 86.2 kg
[2019-05-13] MEDS ORDERED: SODIUM CHLORIDE 0.9% 1,000 ML IV ONE (07:33)
[2019-05-13] MEDS ORDERED: TETANUS-DIPTH-ACEL PERTUSSIS 0.5ML SYRG IM ONE (07:45)
[2019-05-13 08:15] LABS: Basophils # (auto) 0 uL; Basophils % (auto) 0.5 % (0.0-2.0); Eosinophils # (auto) 0.1 uL; Eosinophils % (auto) 1.5 % (0.0-7.0); Hematocrit 38.1 % (41.0-53.0); Hemoglobin 12.7 g/dL (13.5-17.5); Lymphocytes # (auto) 0.6 uL; Lymphocytes % (auto) 14.6 % (10.0-50.0); Mean Corpuscular Hemoglobin 32.3 pg (28.0-32.0); Mean Corpuscular Hgb Conc. 33.3 g/dL (32.0-36.0); Mean Corpuscular Volume 97.1 fL (80.0-100.0); Monocytes # (auto) 0.4 uL; Monocytes % (auto) 9.3 % (0.0-12.0); Neutrophils % (auto) 74.1 % (37.0-80.0); Nucleated Red Blood Cells % 0.1 %; Platelet Count (auto) 200 10^3/uL (140-450); Red Blood Cells 3.93 10^6/uL (4.5-5.90); Red Cell Distribution Width 16.8 % (11.8-14.3); White Blood Cell 4.1 10^3/uL (4.4-10.8)
[2019-05-13 08:29] LABS: INR 1.08 (0.9-1.15); Partial Thromboplastin Time 27.7 sec (23.64-32.05)
[2019-05-13 08:30] LABS: Albumin 3.6 g/dL (3.4-5.0); Calcium 8.2 mg/dL (8.5-10.1); Magnesium 2.6 mg/dL (1.6-2.6)
[2019-05-13] MEDS ORDERED: ACETAMINOPHEN 500 MG TAB PO ONE (08:30)
[2019-05-13 08:34] LABS: BUN/Creatinine Ratio 5.1; Bilirubin, Total 0.7 mg/dL (0.2-1.0); Total Protein 8.9 g/dL (6.4-8.2)
[2019-05-13 10:45] VITALS: BP 129/63
== END 2019-05-13 02:10 | disposition short-term general hospital (02) ==
LOC: EDBD 01:50 → ER 01:51
DX: S00.83XA Contusion of other part of head, initial encounter (principal); F10.129 Alcohol abuse with intoxication, unspecified; F17.210 Nicotine dependence, cigarettes, uncomplicated; I10 Essential (primary) hypertension; F12.10 Cannabis abuse, uncomplicated; W19.XXXA Unspecified fall, initial encounter; Y93.89 Activity, other specified; Y92.89 Other specified places as the place of occurrence of the external cause; Y99.8 Other external cause status; Y90.9 Presence of alcohol in blood, level not specified
CPT/HCPCS: 36415; 70450; 71046; 72125; 80053; 80320; 83735; 85025; 85610; 85730; 90471; 90715; 99285; J7030

== ENCOUNTER 2019-05-18 18:55 | Emergency (ER) | payer MEDICAID ==
[~2019-05-18] VITALS: Ht 185.4 cm; Wt 90.7 kg
[2019-05-18] MEDS ORDERED: SODIUM CHLORIDE 0.9% 1,000 ML IVB ONE (19:25)
[2019-05-18 19:31] VITALS: BP 127/75
== END 2019-05-19 15:59 | disposition home or self-care (01) ==
LOC: EDBD 18:55 → ER 18:57
DX: F10.229 Alcohol dependence with intoxication, unspecified (principal); F17.210 Nicotine dependence, cigarettes, uncomplicated; I10 Essential (primary) hypertension; F12.90 Cannabis use, unspecified, uncomplicated; Z59.0 Homelessness
CPT/HCPCS: 36415; 80320; 94761; 99283; J7030

== ENCOUNTER 2019-05-22 22:01 | Emergency (ER) | payer MEDICAID ==
[~2019-05-22] VITALS: Ht 182.9 cm; Wt 81.6 kg
[2019-05-22 22:03] VITALS: BP 136/79
== END 2019-05-23 08:46 | disposition left against medical advice (07) ==
LOC: EDBD 22:01 → ER 22:04
DX: S09.90XA Unspecified injury of head, initial encounter (principal); Z53.21 Procedure and treatment not carried out due to patient leaving prior to being seen by health care provider; X58.XXXA Exposure to other specified factors, initial encounter; Y93.89 Activity, other specified; Y99.8 Other external cause status; Y92.89 Other specified places as the place of occurrence of the external cause
CPT/HCPCS: 70450; 70486; 72125

== ENCOUNTER 2019-05-26 12:12 | Emergency (ER) | payer MEDICAID ==
[~2019-05-26] VITALS: Ht 182.9 cm; Wt 83.9 kg
[2019-05-26] MEDS ORDERED: SODIUM CHLORIDE 0.9% 1,000 ML IV ONE ×2 (13:07)
[2019-05-26] MEDS ORDERED: THIAMINE 100mg/ml INJ (200mg/2ml VIAL) IV ONE (13:15)
[2019-05-26 13:33] LABS: Basophils # (auto) 0 uL; Basophils % (auto) 0.5 % (0.0-2.0); Eosinophils # (auto) 0.1 uL; Eosinophils % (auto) 1.9 % (0.0-7.0); Hematocrit 34.1 % (41.0-53.0); Hemoglobin 11.2 g/dL (13.5-17.5); Lymphocytes % (auto) 24.4 % (10.0-50.0); Mean Corpuscular Hemoglobin 30.8 pg (28.0-32.0); Mean Corpuscular Hgb Conc. 32.9 g/dL (32.0-36.0); Mean Corpuscular Volume 93.8 fL (80.0-100.0); Monocytes # (auto) 0.5 uL; Monocytes % (auto) 11.8 % (0.0-12.0); Neutrophils # (auto) 2.6 uL; Neutrophils % (auto) 61.4 % (37.0-80.0); Platelet Count (auto) 117 10^3/uL (140-450); Red Blood Cells 3.63 10^6/uL (4.5-5.90); Red Cell Distribution Width 16.3 % (11.8-14.3); White Blood Cell 4.3 10^3/uL (4.4-10.8)
[2019-05-26 14:03] LABS: Calcium 7.7 mg/dL (8.5-10.1); Potassium 3.5 mmol/L (3.5-5.1)
[2019-05-26 14:08] LABS: Bilirubin, Total 0.5 mg/dL (0.2-1.0); Total Protein 7.3 g/dL (6.4-8.2)
[2019-05-26 17:13] VITALS: BP 110/67
== END 2019-05-26 18:37 | disposition home or self-care (01) ==
LOC: EDUNIT# 12:12 → EDBD 12:12 → ER 12:19
DX: F10.229 Alcohol dependence with intoxication, unspecified (principal); I10 Essential (primary) hypertension; R41.82 Altered mental status, unspecified; F17.210 Nicotine dependence, cigarettes, uncomplicated; Z59.0 Homelessness; Y90.8 Blood alcohol level of 240 mg/100 ml or more
CPT/HCPCS: 36415; 80053; 80320; 85025; 93005; 96361; 96374; 99284; J3411; J7030

== ENCOUNTER 2019-05-31 10:40 | Emergency (ER) | payer MEDICAID ==
[~2019-05-31] VITALS: Ht 175.3 cm; Wt 77.1 kg
[2019-05-31 11:54] LABS: Basophils # (auto) 0.1 uL; Basophils % (auto) 1.7 % (0.0-2.0); Eosinophils # (auto) 0 uL; Eosinophils % (auto) 0.6 % (0.0-7.0); Hematocrit 33.7 % (41.0-53.0); Hemoglobin 11.6 g/dL (13.5-17.5); Lymphocytes # (auto) 1.2 uL; Lymphocytes % (auto) 25.6 % (10.0-50.0); Mean Corpuscular Hemoglobin 30.7 pg (28.0-32.0); Mean Corpuscular Hgb Conc. 34.3 g/dL (32.0-36.0); Mean Corpuscular Volume 89.6 fL (80.0-100.0); Monocytes # (auto) 0.5 uL; Monocytes % (auto) 10.6 % (0.0-12.0); Neutrophils # (auto) 2.8 uL; Neutrophils % (auto) 61.5 % (37.0-80.0); Platelet Count (auto) 141 10^3/uL (140-450); Red Blood Cells 3.76 10^6/uL (4.5-5.90); Red Cell Distribution Width 16.4 % (11.8-14.3); White Blood Cell 4.6 10^3/uL (4.4-10.8)
[2019-05-31 11:58] LABS: Albumin 3.2 g/dL (3.4-5.0); Calcium 7.9 mg/dL (8.5-10.1); Potassium 3.9 mmol/L (3.5-5.1)
[2019-05-31 12:27] LABS: BUN/Creatinine Ratio 7.7
[2019-05-31 12:28] LABS: Bilirubin, Total 0.7 mg/dL (0.2-1.0); Total Protein 7.8 g/dL (6.4-8.2)
[2019-05-31 12:56] LABS: Urine Bacteria FEW /hpf (None Seen); Urine Blood Negative /uL (Negative); Urine Specific Gravity 1.005 (1.001-1.035); Urine WBC 14 /hpf (0 - 3)
[2019-05-31] MEDS ORDERED: SODIUM CHLORIDE 0.9% 1,000 ML IV ONE (13:07)
[2019-05-31] MEDS ORDERED: cefTRIAXone 1GM/50ML D5W 50 ML IV ONE (13:15)
[2019-05-31] MEDS ORDERED: FOLIC ACID 1 MG, MULTIPLE VITAMIN 10 ML, MAGNESIUM SULF SDV 50% 8 MEQ, THIAMINE INJ 100... INJ SCH ×5 (14:00)
[2019-05-31 17:40] VITALS: BP 126/65
[2019-06-01] MEDS ORDERED: FOLIC ACID 1 MG, MULTIPLE VITAMIN 10 ML, MAGNESIUM SULF SDV 50% 8 MEQ, THIAMINE INJ 100... INJ SCH ×5 (12:00)
== END 2019-05-31 19:00 | disposition home or self-care (01) ==
LOC: ER 10:40 → EDBD 10:40 → ER 19:00
DX: F10.20 Alcohol dependence, uncomplicated (principal); N39.0 Urinary tract infection, site not specified; E46 Unspecified protein-calorie malnutrition; F17.210 Nicotine dependence, cigarettes, uncomplicated; Z68.25 Body mass index [BMI] 25.0-25.9, adult; Z59.0 Homelessness
CPT/HCPCS: 36415; 70450; 80053; 80320; 81001; 82962; 85025; 93005; 94761; 96365; 96366; 96368; 99284; J0696; J3411; J3475; J7030

== ENCOUNTER 2019-06-02 16:29 | Emergency (ER) | payer MEDICAID ==
[~2019-06-02] VITALS: Ht 180.3 cm; Wt 81.6 kg
[2019-06-02] MEDS ORDERED: SODIUM CHLORIDE 0.9% 2,000 ML IV ONE (17:00)
[2019-06-02] MEDS ORDERED: SODIUM CHLORIDE 0.9% 1,000 ML IV ONE ×2 (17:28)
[2019-06-02] MEDS ORDERED: THIAMINE 100mg/ml INJ (200mg/2ml VIAL) IV ONE (17:30)
[2019-06-02 20:27] VITALS: BP 136/84
== END 2019-06-02 23:43 | disposition home or self-care (01) ==
LOC: EDBD 16:29 → EDUNIT# 16:29 → ER 16:29
DX: F10.229 Alcohol dependence with intoxication, unspecified (principal); E86.0 Dehydration; I10 Essential (primary) hypertension; F17.210 Nicotine dependence, cigarettes, uncomplicated; F12.90 Cannabis use, unspecified, uncomplicated; Z59.0 Homelessness
CPT/HCPCS: 36415; 80320; 96361; 96374; 99283; J3411; J7030

== ENCOUNTER 2019-06-07 22:22 | Emergency (ER) | payer MEDICAID ==
[~2019-06-07] VITALS: Ht 180.3 cm; Wt 77.1 kg
[2019-06-08] MEDS ORDERED: THIAMINE INJ 100 MG in SODIUM CHLORIDE 0.9% 1,000 ML IV ONE (03:45)
[2019-06-08 06:15] LABS: Basophils # (auto) 0.1 uL; Basophils % (auto) 0.8 % (0.0-2.0); Eosinophils # (auto) 0 uL; Eosinophils % (auto) 0.5 % (0.0-7.0); Hematocrit 36.4 % (41.0-53.0); Hemoglobin 12.4 g/dL (13.5-17.5); Lymphocytes # (auto) 1.5 uL; Lymphocytes % (auto) 22.9 % (10.0-50.0); Mean Corpuscular Hemoglobin 30.5 pg (28.0-32.0); Mean Corpuscular Hgb Conc. 34.1 g/dL (32.0-36.0); Mean Corpuscular Volume 89.4 fL (80.0-100.0); Monocytes # (auto) 0.9 uL; Monocytes % (auto) 13.1 % (0.0-12.0); Neutrophils # (auto) 4.2 uL; Neutrophils % (auto) 62.7 % (37.0-80.0); Nucleated Red Blood Cells % 0.1 %; Platelet Count (auto) 178 10^3/uL (140-450); Red Blood Cells 4.07 10^6/uL (4.5-5.90); Red Cell Distribution Width 16.8 % (11.8-14.3); White Blood Cell 6.6 10^3/uL (4.4-10.8)
[2019-06-08] MEDS ORDERED: SODIUM CHLORIDE 0.9% 1,000 ML IV ONE (06:15)
[2019-06-08 06:45] LABS: INR 1.1 (0.9-1.15); Partial Thromboplastin Time 27.9 sec (23.64-32.05)
[2019-06-08 07:02] LABS: Albumin 3.7 g/dL (3.4-5.0); BUN/Creatinine Ratio 9.5; Calcium 8.3 mg/dL (8.5-10.1); Potassium 3.8 mmol/L (3.5-5.1)
[2019-06-08 07:05] LABS: Bilirubin, Total 0.9 mg/dL (0.2-1.0); Total Protein 8.3 g/dL (6.4-8.2)
[2019-06-08] MEDS ORDERED: THIAMINE 100mg/ml INJ (200mg/2ml VIAL) IV ONE (07:45)
[2019-06-08 07:49] VITALS: BP 120/78
== END 2019-06-08 08:48 | disposition home or self-care (01) ==
LOC: EDBD 22:22 → ER 22:37
DX: S00.81XA Abrasion of other part of head, initial encounter (principal); K86.0 Alcohol-induced chronic pancreatitis; F10.129 Alcohol abuse with intoxication, unspecified; E86.0 Dehydration; R07.9 Chest pain, unspecified; I10 Essential (primary) hypertension; F17.210 Nicotine dependence, cigarettes, uncomplicated; X58.XXXA Exposure to other specified factors, initial encounter; Y93.89 Activity, other specified; Y92.89 Other specified places as the place of occurrence of the external cause; Y99.8 Other external cause status; Y90.8 Blood alcohol level of 240 mg/100 ml or more
CPT/HCPCS: 36415; 70450; 80053; 80320; 85025; 85610; 85730; 96374; 99284; J3411

== ENCOUNTER 2019-06-20 20:41 | Emergency (ER) | payer MEDICAID ==
[~2019-06-20] VITALS: Ht 185.4 cm; Wt 81.6 kg
[2019-06-20 21:03] VITALS: BP 143/88
[2019-06-20 23:29] LABS: Basophils # (auto) 0 uL; Basophils % (auto) 0.2 % (0.0-2.0); Eosinophils # (auto) 0.1 uL; Eosinophils % (auto) 1.5 % (0.0-7.0); Hematocrit 32.7 % (41.0-53.0); Hemoglobin 10.2 g/dL (13.5-17.5); Lymphocytes # (auto) 1.4 uL; Lymphocytes % (auto) 29.2 % (10.0-50.0); Mean Corpuscular Hemoglobin 30.2 pg (28.0-32.0); Mean Corpuscular Hgb Conc. 31.2 g/dL (32.0-36.0); Mean Corpuscular Volume 96.6 fL (80.0-100.0); Monocytes # (auto) 0.4 uL; Monocytes % (auto) 9.2 % (0.0-12.0); Neutrophils # (auto) 2.9 uL; Neutrophils % (auto) 59.9 % (37.0-80.0); Nucleated Red Blood Cells % 0.2 %; Platelet Count (auto) 132 10^3/uL (140-450); Red Blood Cells 3.38 10^6/uL (4.5-5.90); Red Cell Distribution Width 19.1 % (11.8-14.3); White Blood Cell 4.9 10^3/uL (4.4-10.8)
[2019-06-20] MEDS ORDERED: FOLIC ACID 1 MG, MULTIPLE VITAMIN 10 ML, MAGNESIUM SULF SDV 50% 8 MEQ, THIAMINE INJ 100... INJ ONE ×5 (23:45)
[2019-06-20 23:49] LABS: Albumin 2.9 g/dL (3.4-5.0); BUN/Creatinine Ratio 11.3; Calcium 7.6 mg/dL (8.5-10.1); Magnesium 2.4 mg/dL (1.6-2.6); Potassium 3.6 mmol/L (3.5-5.1); Salicylate < 1.7 mg/dL (2.8-20.0)
[2019-06-20 23:50] LABS: Acetaminophen < 2.0 ug/mL (10-30)
[2019-06-20 23:51] LABS: Bilirubin, Total 0.8 mg/dL (0.2-1.0); Total Protein 7.1 g/dL (6.4-8.2)
[2019-06-21] MEDS ORDERED: FOLIC ACID 1 MG, MULTIPLE VITAMIN 10 ML, MAGNESIUM SULF SDV 50% 8 MEQ, THIAMINE INJ 100... INJ SCH ×5 (12:00)
== END 2019-06-21 02:00 | disposition left against medical advice (07) ==
LOC: EDBD 20:41 → ER 20:44
DX: F10.10 Alcohol abuse, uncomplicated (principal); Z53.21 Procedure and treatment not carried out due to patient leaving prior to being seen by health care provider
CPT/HCPCS: 36415; 80053; 80320; 80329; 83735; 85025; J3411; J3475; J7070

== ENCOUNTER 2019-06-29 22:38 | Emergency (ER) | payer MEDICAID ==
[~2019-06-29] VITALS: Ht 177.8 cm; Wt 81.6 kg
[2019-06-29 23:06] LABS: Basophils # (auto) 0 uL; Basophils % (auto) 0.7 % (0.0-2.0); Eosinophils # (auto) 0.1 uL; Eosinophils % (auto) 2.9 % (0.0-7.0); Hematocrit 33.8 % (41.0-53.0); Hemoglobin 11.1 g/dL (13.5-17.5); Lymphocytes # (auto) 1.3 uL; Lymphocytes % (auto) 32.3 % (10.0-50.0); Mean Corpuscular Hemoglobin 30.4 pg (28.0-32.0); Mean Corpuscular Hgb Conc. 32.9 g/dL (32.0-36.0); Mean Corpuscular Volume 92.3 fL (80.0-100.0); Monocytes # (auto) 0.6 uL; Monocytes % (auto) 13.8 % (0.0-12.0); Neutrophils # (auto) 2.1 uL; Neutrophils % (auto) 50.3 % (37.0-80.0); Platelet Count (auto) 117 10^3/uL (140-450); Red Blood Cells 3.66 10^6/uL (4.5-5.90); Red Cell Distribution Width 18.4 % (11.8-14.3); White Blood Cell 4.2 10^3/uL (4.4-10.8)
[2019-06-29 23:25] LABS: Alanine Aminotransferase 58 U/L (16-61); Albumin 3.4 g/dL (3.4-5.0); Anion Gap 6 (5-15); BUN/Creatinine Ratio 9.2; Blood Urea Nitrogen 6 mg/dL (7-18); Calcium 7.5 mg/dL (8.5-10.1); Carbon Dioxide 26 mmol/L (21-32); Chloride 111 mmol/L (98-107); GFR African American 163 mL/min; GFR Non-African American 135 mL/min; Glucose 107 mg/dL (74-106); Potassium 3.7 mmol/L (3.5-5.1); Sodium 143 mmol/L (136-145)
[2019-06-29 23:33] LABS: Alkaline Phosphatase 140 U/L (45-117); Bilirubin, Total 0.9 mg/dL (0.2-1.0); Total Protein 7.7 g/dL (6.4-8.2)
[2019-06-29 23:36] LABS: Aspartate Aminotransferase 81 U/L (15-37)
[2019-06-30] MEDS ORDERED: THIAMINE INJ 100 MG in SODIUM CHLORIDE 0.9% 1,000 ML IV ONE ×2
[2019-06-30 07:30] LABS: Urine Bacteria NONE SEEN /hpf (None Seen); Urine Blood Negative /uL (Negative); Urine Mucus FEW (None Seen); Urine Specific Gravity 1.006 (1.001-1.035); Urine WBC <1 /hpf (0 - 3)
[2019-06-30 07:49] LABS: Amphetamine Screen, Urine NEGATIVE (NEGATIVE); Barbiturate Scree,Urine NEGATIVE (NEGATIVE); Benzodiazephine Screen, Urine NEGATIVE (NEGATIVE); Cannabinoid Screen, Urine POSITIVE (NEGATIVE); Cocaine Screen, Urine NEGATIVE (NEGATIVE); Opiate Scree,Urine NEGATIVE (NEGATIVE); Phencyclidine Screen, Urine NEGATIVE (NEGATIVE)
[2019-06-30] MEDS ORDERED: SODIUM CHLORIDE 0.9% 1,000 ML IV ONE ×2 (08:15)
[2019-06-30 08:20] VITALS: BP 123/79
== END 2019-06-30 08:54 | disposition left against medical advice (07) ==
LOC: EDUNIT# 22:38 → EDBD 22:38 → ER 22:40
DX: F10.129 Alcohol abuse with intoxication, unspecified (principal); D53.9 Nutritional anemia, unspecified; F17.210 Nicotine dependence, cigarettes, uncomplicated; I10 Essential (primary) hypertension; F12.10 Cannabis abuse, uncomplicated; Y90.0 Blood alcohol level of less than 20 mg/100 ml; Z59.0 Homelessness
CPT/HCPCS: 36415; 80053; 80307; 80320; 81001; 84484; 85025; 96365; 96366; 99283; J7030

== ENCOUNTER 2019-07-05 17:16 | Emergency (ER) | payer MEDICAID ==
[~2019-07-05] VITALS: Ht 175.3 cm; Wt 81.6 kg
[2019-07-05 17:34] VITALS: BP 136/86
== END 2019-07-05 20:38 | disposition home or self-care (01) ==
LOC: EDBD 17:16 → ER 17:41
DX: F10.10 Alcohol abuse, uncomplicated (principal); R41.82 Altered mental status, unspecified; I10 Essential (primary) hypertension; F17.210 Nicotine dependence, cigarettes, uncomplicated; Y90.8 Blood alcohol level of 240 mg/100 ml or more
CPT/HCPCS: 36415; 70450; 80320

== ENCOUNTER 2019-07-06 20:50 | Emergency (ER) | payer MEDICAID ==
[~2019-07-06] VITALS: Ht 177.8 cm; Wt 81.6 kg
[2019-07-06 21:10] VITALS: BP 141/72
[2019-07-06 22:06] LABS: Urine WBC None Seen /hpf (0 - 3)
[2019-07-06 22:12] LABS: Urine Bacteria NONE SEEN /hpf (None Seen); Urine Blood Negative /uL (Negative); Urine Specific Gravity 1.004 (1.001-1.035)
== END 2019-07-07 00:06 | disposition home or self-care (01) ==
LOC: EDBD 20:50 → ER 20:53
DX: G92 Toxic encephalopathy (principal); R41.82 Altered mental status, unspecified; F10.129 Alcohol abuse with intoxication, unspecified; I10 Essential (primary) hypertension; F17.210 Nicotine dependence, cigarettes, uncomplicated; F12.10 Cannabis abuse, uncomplicated; Z59.0 Homelessness
CPT/HCPCS: 36415; 51701; 80320; 81001

== ENCOUNTER 2019-07-09 19:27 | Emergency (ER) | payer MEDICAID ==
[~2019-07-09] VITALS: Ht 185.4 cm; Wt 81.6 kg
[2019-07-09 19:33] VITALS: BP 144/87
== END 2019-07-09 22:50 | disposition left against medical advice (07) ==
LOC: ER 19:27 → EDBD 19:27 → EDUNIT# 19:27 → ER 22:50
DX: F10.129 Alcohol abuse with intoxication, unspecified (principal); F41.9 Anxiety disorder, unspecified; G92 Toxic encephalopathy; I10 Essential (primary) hypertension; Y90.8 Blood alcohol level of 240 mg/100 ml or more
CPT/HCPCS: 36415; 80320

== ENCOUNTER 2019-07-16 15:29 | Emergency (ER) | payer MEDICAID ==
[~2019-07-16] VITALS: Ht 185.4 cm; Wt 88.5 kg
[2019-07-16 16:11] LABS: Basophils # (auto) 0 uL; Basophils % (auto) 1.1 % (0.0-2.0); Eosinophils # (auto) 0.1 uL; Eosinophils % (auto) 2.8 % (0.0-7.0); Hematocrit 36.9 % (41.0-53.0); Hemoglobin 12.1 g/dL (13.5-17.5); Lymphocytes # (auto) 1.2 uL; Lymphocytes % (auto) 34.5 % (10.0-50.0); Mean Corpuscular Hemoglobin 29.5 pg (28.0-32.0); Mean Corpuscular Hgb Conc. 32.9 g/dL (32.0-36.0); Mean Corpuscular Volume 89.7 fL (80.0-100.0); Monocytes # (auto) 0.3 uL; Neutrophils # (auto) 1.9 uL; Neutrophils % (auto) 52.6 % (37.0-80.0); Nucleated Red Blood Cells % 0.1 %; Platelet Count (auto) 102 10^3/uL (140-450); Red Blood Cells 4.11 10^6/uL (4.5-5.90); Red Cell Distribution Width 17.7 % (11.8-14.3); White Blood Cell 3.6 10^3/uL (4.4-10.8)
[2019-07-16 16:19] LABS: Albumin 3.3 g/dL (3.4-5.0); Calcium 8.1 mg/dL (8.5-10.1); Potassium 3.7 mmol/L (3.5-5.1)
[2019-07-16 16:22] LABS: BUN/Creatinine Ratio 7.1; Bilirubin, Total 0.7 mg/dL (0.2-1.0); Total Protein 7.7 g/dL (6.4-8.2)
[2019-07-16 21:29] VITALS: BP 140/81
[2019-07-16] MEDS ORDERED: ACETAMINOPHEN 500 MG TAB PO ONE ×2 (21:35→21:45)
== END 2019-07-16 23:15 | disposition home or self-care (01) ==
LOC: ER 15:29 → EDBD 15:29 → ER 23:15
DX: F10.129 Alcohol abuse with intoxication, unspecified (principal); I10 Essential (primary) hypertension; F17.210 Nicotine dependence, cigarettes, uncomplicated; Y90.8 Blood alcohol level of 240 mg/100 ml or more
CPT/HCPCS: 36415; 80053; 80320; 85025

== ENCOUNTER 2019-07-18 22:05 | Emergency (ER) | payer MEDICAID ==
[~2019-07-18] VITALS: Ht 182.9 cm; Wt 86.2 kg
[2019-07-18 22:10] VITALS: BP 144/88
== END 2019-07-19 06:52 | disposition home or self-care (01) ==
LOC: EDBD 22:05 → ER 22:05
DX: F10.129 Alcohol abuse with intoxication, unspecified (principal); R07.89 Other chest pain; I10 Essential (primary) hypertension; F17.210 Nicotine dependence, cigarettes, uncomplicated; Y90.6 Blood alcohol level of 120-199 mg/100 ml
CPT/HCPCS: 36415; 80320

== ENCOUNTER 2019-07-21 16:30 | Emergency (ER) | payer MEDICAID ==
[~2019-07-21] VITALS: Ht 180.3 cm; Wt 90.3 kg
[2019-07-21 16:31] VITALS: BP 142/84
[2019-07-21 19:45] LABS: Basophils # (auto) 0 uL; Basophils % (auto) 0.5 % (0.0-2.0); Eosinophils # (auto) 0.1 uL; Eosinophils % (auto) 1.6 % (0.0-7.0); Hematocrit 36.6 % (41.0-53.0); Lymphocytes # (auto) 1.1 uL; Lymphocytes % (auto) 31.9 % (10.0-50.0); Mean Corpuscular Hemoglobin 29.7 pg (28.0-32.0); Mean Corpuscular Hgb Conc. 32.7 g/dL (32.0-36.0); Mean Corpuscular Volume 90.8 fL (80.0-100.0); Monocytes # (auto) 0.3 uL; Monocytes % (auto) 9.4 % (0.0-12.0); Neutrophils % (auto) 56.6 % (37.0-80.0); Platelet Count (auto) 64 10^3/uL (140-450); Red Blood Cells 4.03 10^6/uL (4.5-5.90); Red Cell Distribution Width 17.9 % (11.8-14.3); White Blood Cell 3.5 10^3/uL (4.4-10.8)
[2019-07-21 20:00] LABS: INR 1.2 (0.9-1.15); Partial Thromboplastin Time 27.9 sec (23.64-32.05)
[2019-07-21 20:05] LABS: Albumin 3.5 g/dL (3.4-5.0); Anion Gap 10 (5-15); Blood Urea Nitrogen 6 mg/dL (7-18); Calcium 8.4 mg/dL (8.5-10.1); Carbon Dioxide 23 mmol/L (21-32); Chloride 113 mmol/L (98-107); Glucose 128 mg/dL (74-106); Magnesium 2.3 mg/dL (1.6-2.6); Potassium 3.6 mmol/L (3.5-5.1); Sodium 146 mmol/L (136-145)
[2019-07-21 20:07] LABS: Salicylate < 1.7 mg/dL (2.8-20.0)
[2019-07-21 20:11] LABS: Alanine Aminotransferase 63 U/L (16-61); Alkaline Phosphatase 116 U/L (45-117); Aspartate Aminotransferase 85 U/L (15-37); BUN/Creatinine Ratio 9.7; Bilirubin, Total 0.9 mg/dL (0.2-1.0); GFR African American 172 mL/min; GFR Non-African American 142 mL/min; Total Protein 7.7 g/dL (6.4-8.2)
[2019-07-21 20:13] LABS: Acetaminophen < 2.0 ug/mL (10-30)
[2019-07-21] MEDS ORDERED: THIAMINE INJ 100 MG in SODIUM CHLORIDE 0.9% 1,000 ML IV ONE (20:30)
== END 2019-07-21 21:04 | disposition left against medical advice (07) ==
LOC: EDBD 16:30 → ER 16:39
DX: F10.129 Alcohol abuse with intoxication, unspecified (principal); K21.9 Gastro-esophageal reflux disease without esophagitis; K70.30 Alcoholic cirrhosis of liver without ascites; R42 Dizziness and giddiness; I10 Essential (primary) hypertension; F17.210 Nicotine dependence, cigarettes, uncomplicated; F12.10 Cannabis abuse, uncomplicated; Z59.0 Homelessness
CPT/HCPCS: 36415; 70450; 80053; 80320; 80329; 83735; 83880; 84484; 85025; 85610; 85730; 93005; 99284; J3411; J7030

== ENCOUNTER 2019-07-26 20:43 | Emergency (ER) | payer MEDICAID ==
[~2019-07-26] VITALS: Ht 185.4 cm; Wt 81.6 kg
[2019-07-26 21:20] LABS: Basophils # (auto) 0 uL; Basophils % (auto) 0.4 % (0.0-2.0); Eosinophils # (auto) 0.1 uL; Eosinophils % (auto) 1.2 % (0.0-7.0); Hematocrit 38.8 % (41.0-53.0); Hemoglobin 12.6 g/dL (13.5-17.5); Lymphocytes # (auto) 1.3 uL; Lymphocytes % (auto) 26.5 % (10.0-50.0); Mean Corpuscular Hemoglobin 29.3 pg (28.0-32.0); Mean Corpuscular Hgb Conc. 32.6 g/dL (32.0-36.0); Monocytes # (auto) 0.5 uL; Monocytes % (auto) 10.3 % (0.0-12.0); Neutrophils # (auto) 2.9 uL; Neutrophils % (auto) 61.6 % (37.0-80.0); Nucleated Red Blood Cells % 0.1 %; Platelet Count (auto) 81 10^3/uL (140-450); Red Blood Cells 4.31 10^6/uL (4.5-5.90); Red Cell Distribution Width 17.3 % (11.8-14.3); White Blood Cell 4.8 10^3/uL (4.4-10.8)
[2019-07-26 21:35] LABS: Albumin 3.6 g/dL (3.4-5.0); BUN/Creatinine Ratio 14.5; Calcium 7.9 mg/dL (8.5-10.1); Potassium 3.8 mmol/L (3.5-5.1)
[2019-07-26 21:40] LABS: Bilirubin, Total 0.6 mg/dL (0.2-1.0); Total Protein 8.4 g/dL (6.4-8.2)
[2019-07-27] MEDS ORDERED: THIAMINE INJ 100 MG in SODIUM CHLORIDE 0.9% 1,000 ML IV ONE (04:45)
[2019-07-27] MEDS ORDERED: THIAMINE 100mg/ml INJ (200mg/2ml VIAL) ONE (05:19)
[2019-07-27] MEDS ORDERED: SODIUM CHLORIDE 0.9% 1,000 ML IV ONE (06:15)
[2019-07-27 08:02] VITALS: BP 115/55
== END 2019-07-27 10:27 | disposition home or self-care (01) ==
LOC: EDBD 20:43 → ER 20:44
DX: S00.81XA Abrasion of other part of head, initial encounter (principal); F10.129 Alcohol abuse with intoxication, unspecified; I10 Essential (primary) hypertension; F17.210 Nicotine dependence, cigarettes, uncomplicated; Z59.0 Homelessness; Y90.9 Presence of alcohol in blood, level not specified; W19.XXXA Unspecified fall, initial encounter; Y93.89 Activity, other specified; Y99.8 Other external cause status; Y92.511 Restaurant or cafe as the place of occurrence of the external cause
CPT/HCPCS: 36415; 80053; 80320; 85025; 96365; 96366; 99283; J3411; J7030

== ENCOUNTER 2019-08-01 21:38 | Emergency (ER) | payer MEDICAID ==
[~2019-08-01] VITALS: Ht 180.3 cm; Wt 86.2 kg
[2019-08-01 21:56] LABS: Urine WBC None Seen /hpf (0 - 3)
[2019-08-01] MEDS ORDERED: FOLIC ACID 1 MG, MULTIPLE VITAMIN 10 ML, MAGNESIUM SULF SDV 50% 8 MEQ, THIAMINE INJ 100... INJ STA ×5 (21:57)
[2019-08-01] MEDS ORDERED: SODIUM CHLORIDE 0.9% 1,000 ML IV ONE (22:00)
[2019-08-01 22:23] LABS: Urine Bacteria NONE SEEN /hpf (None Seen); Urine Blood Negative /uL (Negative); Urine Specific Gravity 1.001 (1.001-1.035)
[2019-08-01 22:26] LABS: Basophils # (auto) 0 uL; Basophils % (auto) 0.7 % (0.0-2.0); Eosinophils # (auto) 0.1 uL; Eosinophils % (auto) 1.2 % (0.0-7.0); Hematocrit 36.3 % (41.0-53.0); Lymphocytes # (auto) 1.2 uL; Lymphocytes % (auto) 25.5 % (10.0-50.0); Mean Corpuscular Hemoglobin 29.3 pg (28.0-32.0); Mean Corpuscular Hgb Conc. 33.1 g/dL (32.0-36.0); Mean Corpuscular Volume 88.5 fL (80.0-100.0); Monocytes # (auto) 0.5 uL; Monocytes % (auto) 10.8 % (0.0-12.0); Neutrophils # (auto) 2.8 uL; Neutrophils % (auto) 61.8 % (37.0-80.0); Nucleated Red Blood Cells % 0.1 %; Platelet Count (auto) 84 10^3/uL (140-450); Red Cell Distribution Width 16.8 % (11.8-14.3); White Blood Cell 4.5 10^3/uL (4.4-10.8)
[2019-08-01 22:32] LABS: Amphetamine Screen, Urine NEGATIVE (NEGATIVE); Barbiturate Scree,Urine NEGATIVE (NEGATIVE); Benzodiazephine Screen, Urine NEGATIVE (NEGATIVE); Cannabinoid Screen, Urine NEGATIVE (NEGATIVE); Cocaine Screen, Urine NEGATIVE (NEGATIVE); Opiate Scree,Urine NEGATIVE (NEGATIVE); Phencyclidine Screen, Urine NEGATIVE (NEGATIVE)
[2019-08-01 22:41] LABS: Albumin 3.7 g/dL (3.4-5.0); Potassium 3.6 mmol/L (3.5-5.1)
[2019-08-01 22:46] LABS: BUN/Creatinine Ratio 11.1; Bilirubin, Total 0.7 mg/dL (0.2-1.0)
[2019-08-02 02:00] VITALS: BP 112/73
== END 2019-08-02 04:11 | disposition home or self-care (01) ==
LOC: EDBD 21:38 → ER 21:38 → EDUNIT# 21:38 → ER 08-02 04:11
DX: K70.30 Alcoholic cirrhosis of liver without ascites (principal); F10.229 Alcohol dependence with intoxication, unspecified; I10 Essential (primary) hypertension; F17.210 Nicotine dependence, cigarettes, uncomplicated; F12.10 Cannabis abuse, uncomplicated; Z59.0 Homelessness; Y90.9 Presence of alcohol in blood, level not specified
CPT/HCPCS: 36415; 80053; 80307; 80320; 81001; 84484; 85025; 93005; 96365; 96366; 99284; J3411; J3475; J7030

== ENCOUNTER 2019-08-09 17:26 | Emergency (ER) | payer MEDICAID ==
[~2019-08-09] VITALS: Ht 180.3 cm; Wt 90.7 kg
[2019-08-09] MEDS ORDERED: SODIUM CHLORIDE 0.9% 1,000 ML IVB ONE (19:23)
[2019-08-09 20:38] LABS: Basophils # (auto) 0 uL; Basophils % (auto) 0.4 % (0.0-2.0); Eosinophils # (auto) 0.1 uL; Eosinophils % (auto) 2.5 % (0.0-7.0); Hematocrit 35.5 % (41.0-53.0); Hemoglobin 11.7 g/dL (13.5-17.5); Lymphocytes # (auto) 1.4 uL; Lymphocytes % (auto) 34.4 % (10.0-50.0); Mean Corpuscular Hemoglobin 29.2 pg (28.0-32.0); Mean Corpuscular Hgb Conc. 32.9 g/dL (32.0-36.0); Mean Corpuscular Volume 88.7 fL (80.0-100.0); Monocytes # (auto) 0.4 uL; Monocytes % (auto) 10.3 % (0.0-12.0); Neutrophils # (auto) 2.1 uL; Neutrophils % (auto) 52.4 % (37.0-80.0); Nucleated Red Blood Cells % 0.2 %; Platelet Count (auto) 93 10^3/uL (140-450); Red Cell Distribution Width 16.5 % (11.8-14.3); White Blood Cell 3.9 10^3/uL (4.4-10.8)
[2019-08-09 21:11] LABS: Alanine Aminotransferase 100 U/L (16-61); Albumin 3.2 g/dL (3.4-5.0); Anion Gap 10 (5-15); Aspartate Aminotransferase 116 U/L (15-37); BUN/Creatinine Ratio 8.8; Blood Urea Nitrogen 5 mg/dL (7-18); Calcium 7.6 mg/dL (8.5-10.1); Carbon Dioxide 21 mmol/L (21-32); Chloride 116 mmol/L (98-107); GFR African American 189 mL/min; GFR Non-African American 157 mL/min; Glucose 103 mg/dL (74-106); Potassium 3.6 mmol/L (3.5-5.1); Sodium 147 mmol/L (136-145)
[2019-08-09 21:15] LABS: Alkaline Phosphatase 144 U/L (45-117); Bilirubin, Total 0.5 mg/dL (0.2-1.0); Total Protein 7.6 g/dL (6.4-8.2)
[2019-08-09] MEDS ORDERED: SODIUM CHLORIDE 0.9% 1,000 ML IV ONE (21:45)
[2019-08-09] MEDS ORDERED: THIAMINE 100mg/ml INJ (200mg/2ml VIAL) IV ONE (21:45)
[2019-08-10 01:30] VITALS: BP 128/74
[2019-08-10] MEDS ORDERED: FOLIC ACID 1 MG, MULTIPLE VITAMIN 10 ML, MAGNESIUM SULF SDV 50% 8 MEQ, THIAMINE INJ 100... INJ SCH ×5 (12:00)
== END 2019-08-10 01:30 | disposition home or self-care (01) ==
LOC: EDBD 17:26 → ER 17:36
DX: F10.129 Alcohol abuse with intoxication, unspecified (principal); R79.89 Other specified abnormal findings of blood chemistry; D69.6 Thrombocytopenia, unspecified; F17.210 Nicotine dependence, cigarettes, uncomplicated; F12.10 Cannabis abuse, uncomplicated; I10 Essential (primary) hypertension; Z59.0 Homelessness; Z91.81 History of falling; Y90.8 Blood alcohol level of 240 mg/100 ml or more
CPT/HCPCS: 36415; 70450; 71045; 80053; 80320; 83735; 84484; 85025